=== PATIENT | female | born 2005 | race Two or more races ===

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

== ENCOUNTER 2024-05-28 09:19 | Outpatient (CLI) | payer OTHER | END 2024-05-28 09:27 | disposition home or self-care (01) | LOC: MRI 09:19 | DX: M25.561 Pain in right knee (principal) | CPT/HCPCS: 73721 ==